=== PATIENT | female | born 1975 | race Caucasian/White ===

== ENCOUNTER 2019-08-18 11:25 | Emergency (ER) | payer BC ==
--- NOTE | 2019-08-18 12:09 | ED ---
Lower Extremity - HPI Summary HPI Summary: Pt is a 44 y/o F presenting to the ED for left hip and knee pain that began on 08/18/19. Pt reports the pain radiates down the left LE from the left hip to the left knee. Pt has decreased ROM and is unable to bear weight on the left side. Pt denies back pain or fever. Pt generally does not have back pain. Pt wears a knee brace at night to stabilize her knee after a knee injury in November 2018. In May 2019, Dr. Chikis Paniagua at [facility] performed a long stem revision on the pts knee. Pt has a PSHx of partial knee replacement performed in 2012. 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 Pt takes Naproxen for sylvester pain once a day. Allergies noted. - History of Current Complaint Chief Complaint: EDExtremityLower Stated Complaint: PREV KNEE REPLACEMENT/PAIN IN KNEE AND HIP PER PT Time Seen by Provider: 08/18/19 11:54 Hx Obtained From: Patient Onset of Pain: Minutes Onset/Duration: Still Present Severity Initially: Severe Severity Currently: Severe Pain Intensity: 9 Pain Scale Used: 0-10 Numeric Timing: Lasting Minutes Location: Is Discrete @ - Left hip to left knee Associated Signs And Symptoms: Positive: Knee Pain - Left. Negative: Fever Aggravating Factor(s): Weight Bearing Alleviating Factor(s): Nothing Able to Bear Weight: No - Allergies/Home Medications Allergies/Adverse Reactions: Allergies Allergy/AdvReac Type Severity Reaction Status Date / Time Adhesive Tape Allergy Blisters Verified 08/18/19 11:39 albuterol Allergy See Comment Verified 08/18/19 11:39 Opioids-Methadone and Related Allergy Hallucinati Verified 08/18/19 11:39 ons Sulfa (Sulfonamide Allergy Anaphylatic Verified 08/18/19 11:40 Antibiotics) Shock Home Medications: Home Medications Cholecalciferol TAB* [Vitamin D TAB*] 800 unit PO DAILY 08/18/19 [History Confirmed 08/18/19] Escitalopram * [Lexapro *] 20 mg PO DAILY 08/18/19 [History Confirmed 08/18/19] Esomeprazole(NF) [NEXium(NF)] 20 mg PO DAILY 08/18/19 [History Confirmed ] Gabapentin CAP(*) [Neurontin 100 mg CAP(*)] 200 mg PO BEDTIME 08/18/19 [History Confirmed 08/18/19] Naproxen TAB* [Naprosyn 375 mg TAB*] 375 mg PO DAILY 08/18/19 [History Confirmed 08/18/19] Vitamin K2 40 mcg PO DAILY 08/18/19 [History Confirmed 08/18/19] PMH/Surg Hx/FS Hx/Imm Hx Previously Healthy: Yes Musculoskeletal History: Reports: Hx Orthopedic Injury - Knee injury in November 2018; Hx of L1/L2 vertebrae fracture, Hx of Fracture(s) - Femur in February 2019 Sensory History: Denies: Hx Legally Blind, Hx Deafness Opthamlomology History: Denies: Hx Legally Blind EENT History: Denies: Hx Deafness - Cancer History Cancer Type, Location and Year: Leukemia at 16 y/o - Surgical History Surgical History: Yes Surgery Procedure, Year, and Place: Partial knee replacement in 2012, long stem knee revision in May 2019. Infectious Disease History: No Infectious Disease History: Denies: Traveled Outside the [place] in Last 30 Days - Family History Known Family History: Negative: Diabetes - Social History Alcohol Use: Rare Hx Substance Use: No Substance Use Type: Reports: None Hx Tobacco Use: No Smoking Status (MU): Never Smoked Tobacco Review of Systems Negative: Fever Positive: Arthralgia - Left hip that radiates to left knee, Decreased ROM - Left hip and knee; unable to bear weight. Negative: Myalgia - Back pain All Other Systems Reviewed And Are Negative: Yes Physical Exam - Summary Physical Exam Summary: Appearance: The patient is well-nourished in no acute distress and in no acute pain. Skin: The skin is warm and dry, and skin color reflects adequate perfusion. HEENT: The head is normocephalic and atraumatic. The pupils are equal and reactive. The conjunctivae are clear and without drainage. Nares are patent and without drainage. Mouth reveals moist mucous membranes, and the throat is without erythema and exudate. The external ears are intact. The ear canals are patent and without drainage. The tympanic membranes are intact. Neck: The neck is supple with full range of motion and non-tender. There are no carotid bruits. There is no neck vein distension. Respiratory: Chest is non-tender. Lungs are clear to auscultation and breath sounds are symmetrical and equal. Cardiovascular: Heart is regular rate and rhythm. There is no murmur or rub auscultated. There is no peripheral edema and pulses are symmetrical and equal. Abdomen: The abdomen is soft and non-tender. There are normal bowel sounds heard in all four quadrants and there is no organomegaly palpated. Musculoskeletal: There is no back tenderness noted. There is good capillary refill. There is no peripheral edema or calf tenderness elicited. Tender to any ROM of left hip and to palpation. Neurological: Patient is alert and oriented to person, place and time. The patient has symmetrical motor strength in all four extremities. Cranial nerves are grossly intact. Deep tendon reflexes are symmetrical and equal in all four extremities. Psychiatric: The patient has an appropriate affect and does not exhibit any anxiety or depression. Triage Information Reviewed: Yes Vital Signs On Initial Exam: Initial Vitals Temp Pulse Resp BP Pulse Ox 98.1 F 83 16 154/105 97 08/18/19 11:27 08/18/19 11:27 08/18/19 11:27 08/18/19 11:27 08/18/19 11:27 Vital Signs Reviewed: Yes Procedures - Sedation Patient Received Moderate/Deep Sedation with Procedure: No Diagnostics - Vital Signs Vital Signs Temp Pulse Resp BP Pulse Ox 08/18/19 11:27 98.1 F 83 16 154/105 97 - Laboratory Result Diagrams: 08/18/19 15:07 08/18/19 15:07 Lab Statement: Any lab studies that have been ordered have been reviewed, and results considered in the medical decision making process. - Radiology Hip/Pelvis X-ray Radiology Interpretation Completed By: Radiologist Summary of Radiographic Findings: Hip/Pelvis X-ray IMPRESSION: STATUS POST INTERNAL FIXATION OF THE LEFT FEMUR. NO ACUTE OSSEOUS INJURY. IF SYMPTOMS. PERSIST, RECOMMEND REPEAT IMAGING. Reviewed by ED physician. Femur X-ray Radiology Interpretation Completed By: Radiologist Summary of Radiographic Findings: Femur X-ray IMPRESSION: 1. No displaced fracture. If the patient's symptoms persist, short-term follow-up imaging is recommended. 2. Status post revised left total knee arthroplasty. 3. The sclerotic appearance of the proximal femoral medullary column could bepostoperative or related to prior avascular necrosis. Reviewed by ED physician. Lower Extremity Course/Dx - Course Course Of Treatment: Ms. Hu woke up this morning with pain in her left hip that she describes as severe. Any range of motion hurts. I was concerned about the possibility of a septic joint but her vitals and labs were fine. Plain films revealed no acute pathology. She cannot tolerate many medications including the opioid family. A shot of Toradol helped a little bit. I gave her some Ativan as a muscle relaxer and she got complete relief of pain at that point. Not sure what the etiology is but I don't think anything dangerous is occurring at this point - Diagnoses Provider Diagnoses: Hip pain Discharge ED - Sign-Out/Discharge Documenting (check all that apply): Patient Departure - Discharge - Discharge Plan Condition: Stable Disposition: HOME Prescriptions: LORazepam TAB(*) [Ativan TAB(*)] 1 mg PO Q6H PRN #20 tab MDD 4 PRN Reason: Pain LORazepam TAB(*) [Ativan TAB(*)] 1 mg PO Q6H PRN #20 tab MDD 4 PRN Reason: Pain Patient Education Materials: Hip Pain (ED) Referrals: [facility] [Outside] Additional Instructions: Follow up with your orthopedic physician this week. Return to the ED for any new or worsening symptoms. - Billing Disposition and Condition Condition: STABLE Disposition: Home - Attestation Statements Document Initiated by Trent: Yes Documenting Felicitasibe: Sinai Smith Provider For Whom Trent is Documenting (Include Credential): Justin Meyer MD Scribe Attestation: Sinai Elliott, scribed for Justin Meyer MD on 08/18/19 at 2045. Scribe Documentation Reviewed: Yes Provider Attestation: The documentation as recorded by the Sinai ceballos accurately reflects the service I personally performed and the decisions made by me, Justin Meyer MD Status of Scribe Document: Viewed
[2019-08-18] MEDS ORDERED: Ketorolac INJ* 30 MG/ML 1 ML VIAL IM ONE (13:27)
[2019-08-18] MEDS ORDERED: LORazepam TAB(*) 1 MG PO ONE (14:39)
[2019-08-18 15:15] LABS: ABS Basophils 0.1 10^3/ul (0-0.2); ABS Eosinophils 0.1 10^3/ul (0-0.6); ABS Lymphocytes 1.6 10^3/ul (1.0-4.8); ABS Monocytes 0.4 10^3/ul (0-0.8); ABS Neutrophils 4.2 10^3/ul (1.5-7.7); Eosinophil % 1.9 %; Hematocrit 39 % (35-47); Hemoglobin 12.9 g/dL (12.0-16.0); Lymphocyte % 24.3 %; Mean Corpuscular HGB Conc 33 g/dL (31-36); Mean Corpuscular Hemoglobin 29 pg (27-31); Mean Corpuscular Volume 88 fL (80-97); Mean Platelet Volume 7.7 fL (7.4-10.4); Nucleated Red Blood Cells % 0.1; Platelet Count 311 10^3/uL (150-450); Red Blood Count 4.46 10^6 /uL (3.70-4.87); Red Cell Distribution Width 15 % (10-15); White Blood Count 6.4 10^3/uL (3.5-10.8)
[2019-08-18 15:33] LABS: Albumin 4.2 g/dL (3.2-5.2); Albumin/Globulin Ratio 1.4 (1-3); BUN/Creatinine Ratio 22.7 (8-20); C Reactive Protein 6.73 mg/L (<8.01); Calcium 9.2 mg/dL (8.6-10.3); EGFR African American 102.5 (>60); EGFR Non-African American 84.7 (>60); Potassium 3.8 mmol/L (3.5-5.0); Total Bilirubin 0.3 mg/dL (0.2-1.0); Total Protein 7.2 g/dL (6.4-8.9)
[2019-08-18 15:45] VITALS: BP 131/81
== END 2019-08-18 15:26 | disposition home or self-care (01) ==
LOC: ED 11:25
DX: M25.552 Pain in left hip (principal); M16.0 Bilateral primary osteoarthritis of hip; Z96.652 Presence of left artificial knee joint; Z85.6 Personal history of leukemia; Z79.899 Other long term (current) drug therapy; Z88.5 Allergy status to narcotic agent; Z88.2 Allergy status to sulfonamides; Z88.8 Allergy status to other drugs, medicaments and biological substances
CPT/HCPCS: 36415; 80053; 83605; 85025; 86140; 96372; 99283; A9270-GY; J1885